=== PATIENT | male | born 1950 | race Caucasian/White ===

== ENCOUNTER → 2017-04-30 | Outpatient (CLI) | payer OTHER ==
[~2017-04-30] VITALS: Ht 190.5 cm; Wt 95.3 kg
[~2017-04-30] MED LIST: AMANTADINE100 M1 PO; ASPIR 8181 MG PO; AZILECT0.5 MG PO; COREG6.25 MG PO; FLOMAX0.4 MG PO; MAXZIDE-25 MG1 EACH PO; PRILOSEC 20 MG20 MG PO; VESICARE 5 MG TA5 MG PO
--- NOTE | ~2017-04-30 | S ---
[facility] [place] [address] SURGICAL PATH RPT PROCEDURE Name: UMESH SAGE Room #: REG [facility].#: [id number] Admission: 04/30/17 Date of : 52 Discharge: Report #: [id number] Path Case #: [id number] PATHOLOGY REPORT COLLECTION DATE: 04/30/2017 RECEIVED DATE: 04/30/2017 SUBMITTING PHYS: Dr. Binh Coe OTHER PHYS: Dr. Cole Ferguson SPECIMEN(S) RECEIVED: A.Gastric B.Distal esophagus * * * * * * * * * * * * FINAL DIAGNOSIS: A. Gastric mucosa, gastric rule out H. pylori, endoscopic biopsy: - Mild focal chronic inflammation. - Negative for active inflammation. - Negative for intestinal metaplasia or atrophy. - Negative for Helicobacter pylori. B. 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 - Squamous mucosa with mild esophagitis. (IUV:shirlene; 05/01/2017) COMMENT: Helicobacter pylori immunohistochemical stain performed on block A1 - Negative Part B co-reviewed by Dr. Jemima Mack. (IUV:shirlene; 05/01/2017) PATHOLOGIST: Wendy Foster M.D. REPORT ELECTRONICALLY SIGNED BY: Wendy Foster M.D. DATE/TIME: 05/01/2017 15:43 * * * * * * * * * * * * GROSS PATHOLOGY: A. Received in formalin labeled "Umesh Del RioSANTOS pratt of gastric R/O H. pylori," are four segments of romero soft tissue measuring 1.3 x 0.6 x 0.3 cm in aggregate dimensions and ranging from 0.4 to 0.7 cm in maximum dimension. The specimen is submitted entirely in cassette A1. B. Received in formalin labeled "Umesh Del RioSANTOS pratt distal esophagus R/O Carvalho's," are four segments of romero soft tissue measuring 0.6 [address] [address] SURGICAL PATH RPT PROCEDURE Name: CHUUMESH Room #: REG [facility]#: [id number] Admission: 04/30/17 Date of : 52 Discharge: Report #: [id number] Path Case #: [id number] x 0.2 cm in aggregate dimensions and ranging from 0.1 to 0.3 cm in maximum dimension. The specimen is submitted entirely in cassette B1. (TSD; 04/30/2017) CLINICAL HISTORY: Pre-OP diagnosis: Hx polyps Post OP diagnosis: Carvalho's, dysphagia, GERD INITIAL CPT CODE(S): A; 39034, 45988 B; 46674 Professional services performed by [facility] at [address] , [place] [address] Technical services performed by [facility] at [address] [place] [address]., [address] [address]. [facility] [address] [address] PHONE: [phone] DIRECTOR: Zeus Diaz M.D. * * * END OF REPORT * * *
== END | disposition home or self-care (01) ==
LOC: GI 09:56
DX: Z09 Encounter for follow-up examination after completed treatment for conditions other than malignant neoplasm (principal); Z87.19 Personal history of other diseases of the digestive system; K22.70 Barrett's esophagus without dysplasia
CPT/HCPCS: 62110; 62900

== ENCOUNTER 2018-08-06 05:31 | Day surgery (SDC) | payer OTHER ==
[~2018-08-06] VITALS: Ht 190.5 cm; Wt 95.3 kg
--- NOTE | ~2018-08-06 | PATH ---
[facility] [address] [place] [address] PATHOLOGY RPT PROCEDURE Name: CHUUMESH Room #: [facility]#: [id number] Admission: 08/06/18 Date of : 52 Discharge: 08/06/18 Report #: [id number] Path Case #: [id number] [facility] Accession Number: [id number] . 01 Material submitted: . LEFT LOWER LID/CHEEK LESION - FS . 02 Diagnosis: Skin, left lower lid/cheek lesion, excision: - BASAL CELL CARCINOMA. - Margins of resection free of malignancy. (IUV:customer service associate; 08/07/2018) MBR/08/07/2018 . 02 Electronically signed: . Wendy Foster MD, Pathologist NPI- [id number] . 01 Gross description: . Specimen is received fresh from the OR labeled with the patient's name, and "lesion left lower lid/cheek", consists of an ellipse of skin measuring approximately 1.5 cm. It is assigned superior, lateral, inferior and medial, these are assigned 12:00, 3:00,6:00 and 9:00. The 12-3-6:00 is inked black, the 6-9:00 is inked blue, and 9-12:00 is inked green. At this point, specimen is serially sectioned and entirely submitted for frozen section as FSA1, this is subsequently submitted for permanent sections as A1. (IUV:customer service associate; 08/06/2018) . FROZEN SECTION DIAGNOSIS (Wendy Foster MD) . FSA1: Skin, lesion left lower lid/cheek, excision: - Basal cell carcinoma, margins free of invasive tumor. . These findings are discussed with Dr. Db Suazo in OR-6 and a written report is placed in the patient's chart. . (IUV:customer service associate; 08/06/2018) . Frozen section performed at [facility], [address] [place] [address] , [place] [address]. /TOB . 02 Pathologist provided ICD-10: C44.319 . 02 [place] [address] PATHOLOGY RPT PROCEDURE Name: MARLENJohnUMESH Room #: [facility] [place].[facility].#: [id number] Admission: 08/06/18 Date of : 52 Discharge: 08/06/18 Report #: [id number] Path Case #: [id number] CPT . 500475, [id number] Specimen Comment: A courtesy copy of this report has been sent to Specimen Comment: [phone], . Specimen Comment: Report sent to / DR DOUGLAS Specimen Comment: A duplicate report has been generated due to demographic updates. Performed at: [address] [facility], [place], [place] [id number] MD Tee Gonzalez MD Phone: [phone] Performed at: [address] [facility] [address] [id number] MD Wendy Foster MD Phone: [phone]
--- NOTE | ~2018-08-06 | O ---
[facility] [place] [address] OPERATIVE REPORT Name: UMESH SAGE Room #: 150-13 [facility] M..#: [id number] Admission: 08/06/18 Attend Phys: Db Suazo MD Discharge: Date of : 52 Report #: [id number] THIS REPORT FOR: //name// CC: Cole Suazo DATE OF SERVICE: 08/06/2018 PREOPERATIVE DIAGNOSIS: Tumor of left lower lid and cheek. POSTOPERATIVE DIAGNOSIS: Tumor of left lower lid and cheek, basal cell carcinoma. PROCEDURE: Excision of basal cell carcinoma of left lower lid and cheek with frozen section, control of margins, myocutaneous flap repair of defect with additional full thickness skin graft from right lateral upper lid into left lower lid. SURGEON: Db Suazo M.D. FLOCCULATOR OPERATOR: None. ANESTHESIA: MAC. COMPLICATIONS: None. INDICATIONS FOR SURGERY: This pleasant 68-year-old gentleman presents with a nodular ulcerative lesion in his left lower lid and cheek that appears to be a basal cell carcinoma. He presents today for excision of this lesion with frozen sections and subsequent repair of that ensuing defect. Informed consent was obtained to include but not limited to the potential risk for loss of vision, bleeding, infection, failure to improve the problem, the potential need for further surgery or treatment. DESCRIPTION OF PROCEDURE: The patient was taken to the operating room where 2% Xylocaine with epinephrine mixed with equal parts 0.75% Marcaine with Wydase was administered transcutaneously and transconjunctivally to the left lower lid, the left cheek, the left lateral canthus and the left medial canthus. The patient was subsequently prepped and draped in usual sterile fashion. A fine tip skin marking pen was then utilized to outline the lesion including 1-2 mm of normal appearing tissue around its margin. The lesion was directly overlying the facial artery, which bled briskly after the initial incision. The specimen was then oriented on a drawing for the waiting pathologist as hemostasis was achieved in the field. The pathologist snap froze that specimen and found out that the lesion was indeed a basal cell carcinoma and that the margins were [address] [address] OPERATIVE REPORT Name: UMESH SAGE Room #: 150-13 [facility].#: [id number] Admission: 08/06/18 Attend Phys: Db Suazo MD Discharge: Date of : 52 Report #: [id number]. The wound was then inspected and a myocutaneous flap developed to correct the cheek portion of the defect. The flap was elevated and advanced, closed subsequently with interrupted buried Vicryl sutures deep and then 6-0 plain gut sutures more superficially. The lid portion of the defect more superiorly fell superior to the inferior orbital rim and as such did not lend itself well to an easily addressable flap because of the patient's extensive actinic changes and acne rosacea. The decision was made then to take a full thickness skin graft from the lateral right upper lid. The lateral right upper lid was then anesthetized with the same anesthetic mixture used at the beginning of the case. A fine tip skin marking pen was then utilized to outline the residual defect in the medial left lower lid. The incision was then made with a 15 blade and a full thickness skin graft harvested with thin section techniques. The graft was then defatted and secured into its bed in the left lower lid with cardinal bites of 7-0 Vicryl suture followed by 6-0 plain gut suture. The right upper lid was then dressed with erythromycin ophthalmic ointment. The left eye had ointment applied to it in addition to the full-thickness skin graft. Multiple Telfa pads were then placed, which were held in place with eye pads and silk tape applied along with Mastisol. The patient was subsequently transported to the recovery area having tolerated the procedures well with no anesthetic or operative complications being noted. By: [id number] Db Suazo MD /nt
[~2018-08-06 05:31] MED LIST changes: +MYRBETRIQ50 MG PO; +SINEMET 25-1001 EAC1 PO
[2018-08-06 14:22] VITALS: BP 136/86
== END 2018-08-06 16:37 | disposition home or self-care (01) ==
LOC: OR 05:31 → TBA 05:31 → OR 10:17
DX: C44.1192 Basal cell carcinoma of skin of left lower eyelid, including canthus (principal); I10 Essential (primary) hypertension; G20 Parkinson's disease; K21.9 Gastro-esophageal reflux disease without esophagitis; N40.0 Benign prostatic hyperplasia without lower urinary tract symptoms; Z98.41 Cataract extraction status, right eye; Z98.42 Cataract extraction status, left eye; Z98.890 Other specified postprocedural states; Z87.19 Personal history of other diseases of the digestive system; Z88.2 Allergy status to sulfonamides; Z79.899 Other long term (current) drug therapy
CPT/HCPCS: 50010; 50101; 50386; 50398; 51636; 56528; 56531; 62110; 62850; 70005